=== PATIENT | female | born 1950 | race Caucasian/White ===

== ENCOUNTER 2022-06-28 09:45 | Inpatient (IN) ==
[2022-06-28] MEDS ORDERED: IOPAMIDOL 100 ML BOTTLE IV ONE (09:46)
--- NOTE | 2022-06-28 10:04 | Emergency Department Note ---
HPI General Chief complaint: Shortness of Breath/Dyspnea Stated complaint: flu sx Time Seen by Provider: 06/28/22 10:00 Source: patient Mode of arrival: ambulatory Limitations: no limitations History of Present Illness HPI Narrative: Narrative: This 72-year-old presents complaining of increasing shortness of breath and coughing and aching all over since Monday. She has felt febrile, but denies sweats and chills. She denies nausea vomiting diarrhea. She denies urinary tract symptoms. She denies any chest pains or palpitations. Related Data Home Medications Medication Instructions Recorded Confirmed aspirin 325 mg tablet 325 mg PO QDAY 05/20/19 04/11/22 atorvastatin 80 mg tablet 80 mg PO QHS 05/20/19 04/11/22 Previous Rx's Medication Instructions Recorded fluoxetine 10 mg capsule 10 mg PO QDAY #30 caps 04/06/22 fluoxetine 40 mg capsule 40 mg PO QDAY 30 days #30 caps 04/06/22 trazodone 100 mg tablet See Rx Instructions .Route 04/06/22 .COMPLEX #75 tabs gabapentin 300 mg capsule 1,200 mg PO HS #120 caps 04/11/22 Allergies Allergy/AdvReac Type Severity Reaction Status Date / Time acetaminophen AdvReac Intermediate Vomiting Verified 06/28/22 09:51 [From Darvocet-N 100] hydrocodone AdvReac Intermediate Vomiting Verified 06/28/22 09:51 propoxyphene AdvReac Intermediate Vomiting Verified 06/28/22 09:51 [From Darvocet-N 100] Review of Systems ROS ROS Narrative: Narrative: [facility] Narrative Patient History Narrative: Narrative: Medical/Surgical/Family History All Active Problems (Updated 04/11/22 @ 17:43 by Mark Brooks MD) 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) Cerebrovascular accident (Chronic) Osteoarthritis of right knee (Chronic) Osteopenia (Chronic) Adenomatous polyp of cervix (Chronic) Vaginal prolapse (Chronic) Constipation, chronic (Chronic) Other insomnia (Chronic) Generalized anxiety disorder (Chronic) Adjustment disorder with anxiety (Chronic) Mixed hyperlipidemia (Chronic) Other dorsalgia (Chronic) Pain, joint, ankle, right (Chronic) Anxiety (Chronic) Depression, major, severe recurrence (Chronic) Generalized anxiety disorder (Chronic) Persistent depressive disorder (Chronic) Thyroid nodule (Chronic) Degenerative disc disease (Chronic) Constipation (Chronic) Nausea (Chronic) Lumbago (Chronic) Acute whiplash injury (Chronic) Tension headache (Chronic) Drug reaction (Chronic) Urinary tract infection (Chronic) Hypokalemia (Chronic) Dehydration (Chronic) Medical History (Updated 04/11/22 @ 17:43 by Mark Brooks MD) Adenomatous polyp of cervix Adjustment disorder with anxiety Anxiety Cerebrovascular accident Constipation Constipation, chronic Degenerative disc disease Depression, major, severe recurrence Generalized anxiety disorder History of blood clot in brain Lumbago Mixed hyperlipidemia Nausea Osteoarthritis of right knee Osteopenia Other dorsalgia Other insomnia Pain, joint, ankle, right Thyroid nodule Vaginal prolapse Surgical History H/O total knee replacement (~2014) History of carotid endarterectomy History of cholecystectomy History of D&C (07/26/16) History of fusion of cervical spine History of neck surgery X 3 History of reduction mammoplasty History of tonsillectomy and adenoidectomy Family History Mother Insomnia Arthritis Hypothyroidism Other Osteoarthritis Social History Smoking Status: Former smoker Alcohol Intake Frequency: does not drink Substance Use: former substance user and marijuana Exam Narrative Narrative: Narrative: General Limitations: no limitations Course Vital Signs Vital signs: Vital Signs Temperature 97.0 F 06/28/22 09:50 Pulse Rate 94 H 06/28/22 09:50 Respiratory Rate 16 06/28/22 09:50 Blood Pressure 127/64 06/28/22 09:50 Pulse Oximetry (%) 88 L 06/28/22 09:50 Oxygen Delivery Method 06/28/22 09:50 Temperature 97.0 F 06/28/22 09:50 Pulse Rate 92 H 06/28/22 11:37 Respiratory Rate 16 06/28/22 09:50 Blood Pressure 134/63 06/28/22 11:37 Pulse Oximetry (%) 94 06/28/22 11:37 Oxygen Delivery Method 06/28/22 11:37 Oxygen Flow Rate (L/min) 2 06/28/22 11:37 MDM MDM Narrative Medical decision making narrative: Narrative: Patient's EKG is normal sinus rhythm, with no signs of acute ischemia and no S1Q3 pattern. Chest x-ray was read as negative with borderline cardiomegaly. Patient's Melani test came back positive for influenza A Sepsis Sepsis Identified: No Lab Data Result diagrams: 06/28/22 10:15 Labs: Lab Results 06/28/22 06/28/22 06/28/22 Range/Units 10:14 10:15 10:15 WBC 6.1 (4.5-11.0) K/mcL RBC 3.82 (3.59-5.38) M/mcL Hgb 12.9 (11.2-15.7) g/dL Hct 37.7 (34.1-44.9) % POC Hct (36-48) MCV 98.7 (80.0-100.0) fL MCH 33.8 (26.0-34.0) pg MCHC 34.2 (31.0-36.0) g/dL RDW 12.2 (11.5-14.5) % Plt Count 128 L (140-440) K/mcL MPV 10.1 (8.8-12.5) fL Immature Gran % (Auto) 0.3 (0.0-0.5) % Neut % (Auto) 78.0 (38.0-78.0) % Lymph % (Auto) 12.1 L (15.5-49.0) % [place] % (Auto) 9.1 (1.0-12.0) % Eos % (Auto) 0.2 (0.0-7.0) % Baso % (Auto) 0.3 (0.0-2.0) % Lymph # (Auto) 0.73 L (1.50-4.80) K/mcL [place] # (Auto) 0.55 (0.10-0.90) K/mcL Eos # (Auto) 0.01 (0.00-0.70) K/mcL Baso # (Auto) 0.02 (0.00-0.30) K/mcL Immature Gran # 0.02 (0.00-0.05) K/mcl Absolute Neutrophils 4.72 (1.80-8.00) K/mcL D-Dimer TNP POC Sodium (133-145) POC Potassium (3.3-5.1) POC Chloride (96-108) POC Total CO2 (22-30) POC BUN (6-20) POC Creatinine (0.6-1.2) POC Glucose (70-105) POC WB Ioniz Calcium (1.16-1.32) POC Troponin I 0.07 (0.00-0.08) 06/28/22 06/28/22 Range/Units 10:20 11:11 WBC (4.5-11.0) K/mcL RBC (3.59-5.38) M/mcL Hgb (11.2-15.7) g/dL Hct (34.1-44.9) % POC Hct 38.0 (36-48) MCV (80.0-100.0) fL MCH (26.0-34.0) pg MCHC (31.0-36.0) g/dL RDW (11.5-14.5) % Plt Count (140-440) K/mcL MPV (8.8-12.5) fL Immature Gran % (Auto) (0.0-0.5) % Neut % (Auto) (38.0-78.0) % Lymph % (Auto) (15.5-49.0) % [place] % (Auto) (1.0-12.0) % Eos % (Auto) (0.0-7.0) % Baso % (Auto) (0.0-2.0) % Lymph # (Auto) (1.50-4.80) K/mcL [place] # (Auto) (0.10-0.90) K/mcL Eos # (Auto) (0.00-0.70) K/mcL Baso # (Auto) (0.00-0.30) K/mcL Immature Gran # (0.00-0.05) K/mcl Absolute Neutrophils (1.80-8.00) K/mcL D-Dimer 0.77 H POC Sodium 138 (133-145) POC Potassium 3.7 (3.3-5.1) POC Chloride 101 (96-108) POC Total CO2 27.0 (22-30) POC BUN 20 (6-20) POC Creatinine 0.5 L (0.6-1.2) POC Glucose 108 H (70-105) POC WB Ioniz Calcium 1.14 L (1.16-1.32) POC Troponin I (0.00-0.08) ED POC Tests ED POC Tests: [facility] - Influenza A Positive [facility] - Influenza B Negative [facility] - SARS Antigen Negative Discharge Plan Patient/Caregiver Discharge Instructions Follow up with: Reta Barbosa ARNP [Primary Care Provider] - Prescriptions: No Action atorvastatin 80 mg tablet 80 mg PO QHS aspirin 325 mg tablet 325 mg PO QDAY gabapentin 300 mg capsule 1,200 mg PO HS Qty: 120 2RF trazodone 100 mg tablet See Rx Instructions .ROUTE .COMPLEX Qty: 75 3RF Dose Instruction: TAKE 1& 1/2 TO 2 TABLETS BY MOUTH AT BEDTIME NEEDED FOR INSOMNIA Rx Instructions: TAKE 1& 1/2 TO 2 TABLETS BY MOUTH AT BEDTIME NEEDED FOR INSOMNIA fluoxetine 40 mg capsule 40 mg PO QDAY 30 Days Qty: 30 3RF fluoxetine 10 mg capsule 10 mg PO QDAY Qty: 30 2RF Rx Instructions: Take along with 40mg capsule (total daily dose of 50mg)
--- NOTE | 2022-06-28 10:16 | XRay Report ---
CLINICAL INFORMATION: Dyspnea COMPARISON: None. TECHNIQUE: Portable FINDINGS: The heart is mildly enlarged. Mediastinum and pulmonary vessels are unremarkable. The lungs are clear. There are no effusions. The bones and soft tissues are within normal limits. IMPRESSION: Borderline cardiomegaly otherwise negative. Interpreted and Authenticated by: Calos Pinto 06/28/22
[2022-06-28 10:23] LABS: POC Calcium, Ionized 1.14 (1.16-1.32); POC Creatinine 0.5 (0.6-1.2); POC Potassium 3.7 (3.3-5.1)
[2022-06-28 11:08] LABS: Basophils # (Auto) 0.02 K/mcL (0.00-0.30); Basophils % (Auto) 0.3 % (0.0-2.0); Eosinophils # (Auto) 0.01 K/mcL (0.00-0.70); Eosinophils % (Auto) 0.2 % (0.0-7.0); Hematocrit 37.7 % (34.1-44.9); Hemoglobin 12.9 g/dL (11.2-15.7); Lymphocytes # (Auto) 0.73 K/mcL (1.50-4.80); Lymphocytes % (Auto) 12.1 % (15.5-49.0); Mean Cell Volume 98.7 fL (80.0-100.0); Mean Corpuscular HGB Conc 34.2 g/dL (31.0-36.0); Mean Platelet Volume 10.1 fL (8.8-12.5); Monocytes # (Auto) 0.55 K/mcL (0.10-0.90); Monocytes % (Auto) 9.1 % (1.0-12.0); Platelet Count 128 K/mcL (140-440); RBC 3.82 M/mcL (3.59-5.38); Red Cell Distribution Width 12.2 % (11.5-14.5); WBC 6.1 K/mcL (4.5-11.0)
[2022-06-28] MEDS ORDERED: OSELTAMIVIR PHOSPHATE 75 MG CAPSULE PO ONE (12:00)
[2022-06-28] MEDS ORDERED: ONDANSETRON 4 MG/2 ML VIAL IV ONE (12:41)
--- NOTE | 2022-06-28 13:33 | Cat Scan Report ---
CLINICAL INFORMATION: Elevated d-dimer and chest pain COMPARISON: None. TECHNIQUE: 80ml of Isovue-370 were injected intravenously. Using SmartPrep to maximize pulmonary artery opacification, .625mm helical slices were obtained from the lung apices through the lung bases. Following reconstruction, 2.5 mm sagittal, coronal, and axial reformations were processed. The exam was reviewed at mediastinal, lung, and bone windows. The exam was performed using radiation dose optimization techniques including, but not limited to, automated exposure control, adjustment of the mA and/or kV according to patient size and use of iterative reconstruction technique. FINDINGS: Pulmonary parenchymal windows moderate underlying bronchitis likely chronic with elevated lung volumes and wall thickening/dilatation of bronchi. Moderate patchy groundglass infiltrates in the posterior segment of the right upper lobe and the superior and posterior basilar segments of the right lower lobe are present. Smaller patchy alveolar infiltrate throughout the posterior left lower lobe with a 6.4 mm nodule superior aspect of infiltrate-like likely inflammatory. Left upper lobe is clear. Pleural spaces are unremarkable-no effusions. Mediastinal windows show the heart is is mildly enlarged with extremely heavy calcific plaque in the coronary arteries. There is also calcification in aortic and mitral valve. The thoracic aorta is normal in diameter diffuse intimal thickening. The pulmonary arteries are normal diameter and well-opacified without evidence of embolus. There is no adenopathy in the mediastinal, hilar or axillary regions. Esophagus is grossly normal. The thyroid is unremarkable. Soft tissues of the chest wall are normal. Bone windows show no focal osseous abnormalities. At C7-T1, there is grade 1 spondylolisthesis, broad disc protrusion and facet arthropathy resulting in severe left IV foraminal narrowing with exiting left C8 nerve root impingement. This also broad disc spur complex C6-7 with impingement of the exiting left C7 nerve root. Images appear abdomen show fusiform aneurysmal enlargement of the celiac artery with a maximal diameter 11 mm. Visualized liver, adrenal glands, spleen, pancreas and kidneys are normal. IMPRESSION: 1. No evidence of pulmonary embolus. 2. Moderate patchy groundglass infiltrates posterior right upper and lower lobes with smaller patchy alveolar infiltrate posterior left lower lobe. Suspect aspiration or infection. 3. Moderate underlying bronchitis-likely chronic 4. Moderate cardiomegaly with very heavy calcific plaque in the coronary arteries. Suspect hemodynamically significant stenosis. 5. 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 6. Degenerative stenosis in the lower cervical spine resulting in severe left C6-7 and left C7-T1 IV foraminal narrowing with exiting left C7 and left C8 nerve root impingement. Please correlate with left upper extremity radiculopathy Interpreted and Authenticated by: Calos Pinto 06/28/22
--- NOTE | 2022-06-28 14:37 | Internal Med History&Physical ---
HPI History of Present Illness Patient information: Note initiated : 06/28/22 at 2:29 pm Service Date, if different from initiated Date: [] Patient: Savanah Bernstein a 72 y/o F admitted on for flu sx. Chief Complaint: [] History of present illness: Ms. Bernstein is a 72 year old F Presents to the ED with shortness of breath cough body aches fever chills nausea vomiting diarrhea. Patient states she went to bed feeling fine night but woke up Monday morning feeling crummy including the above symptoms. Shortness of breath worsened to the point where she felt she needed to come into the ED. She is found to be hypoxic at 88%. Her cough is productive of thick green sputum. In the ED she is evaluated found to be tachycardic and hypoxic. She has had the flu vaccine was found to be flu positive. COVID-negative. She says her grandson who she lives with was sick prior to her getting sick. Chest x-ray unremarkable and CTA of the chest was done which showed no PE but moderate patchy groundglass infiltrate right upper and lower lobes smaller in the posterior left. Patient started on oxygen and IV antibiotics in the ED. Review of Systems: Pertinent positives as above. Denies headache/chest pain/. 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) Cerebrovascular accident (Chronic) Osteoarthritis of right knee (Chronic) Osteopenia (Chronic) Adenomatous polyp of cervix (Chronic) Vaginal prolapse (Chronic) Constipation, chronic (Chronic) Other insomnia (Chronic) Generalized anxiety disorder (Chronic) Adjustment disorder with anxiety (Chronic) Mixed hyperlipidemia (Chronic) Other dorsalgia (Chronic) Pain, joint, ankle, right (Chronic) Anxiety (Chronic) Depression, major, severe recurrence (Chronic) Generalized anxiety disorder (Chronic) Persistent depressive disorder (Chronic) Thyroid nodule (Chronic) Degenerative disc disease (Chronic) Constipation (Chronic) Nausea (Chronic) Lumbago (Chronic) Acute whiplash injury (Chronic) Tension headache (Chronic) Drug reaction (Chronic) Urinary tract infection (Chronic) Hypokalemia (Chronic) Dehydration (Chronic) Medical History (Updated 04/11/22 @ 17:43 by Mark Brooks MD) Adenomatous polyp of cervix Adjustment disorder with anxiety Anxiety Cerebrovascular accident Constipation Constipation, chronic Degenerative disc disease Depression, major, severe recurrence Generalized anxiety disorder History of blood clot in brain Lumbago Mixed hyperlipidemia Nausea Osteoarthritis of right knee Osteopenia Other dorsalgia Other insomnia Pain, joint, ankle, right Thyroid nodule Vaginal prolapse Surgical History H/O total knee replacement (~2014) History of carotid endarterectomy History of cholecystectomy History of D&C (07/26/16) History of fusion of cervical spine History of neck surgery X 3 History of reduction mammoplasty History of tonsillectomy and adenoidectomy Family History Mother Insomnia Arthritis Hypothyroidism Other Osteoarthritis Social History marital status: occupational status: retired physical activity: other details: Exercise Tape frequency: 3-4 times per week smoking status: Former smoker alcohol intake frequency: does not drink substance use type: former substance user and marijuana MEDS/ALLERGIES Home Medications and Allergies Home Medications Medication Instructions Recorded Confirmed Type aspirin 325 mg tablet 325 mg PO QDAY 05/20/19 04/11/22 History atorvastatin 80 mg tablet 80 mg PO QHS 05/20/19 04/11/22 History fluoxetine 10 mg capsule 10 mg PO QDAY #30 caps 04/06/22 04/11/22 Rx fluoxetine 40 mg capsule 40 mg PO QDAY 30 days #30 caps 04/06/22 04/11/22 Rx trazodone 100 mg tablet See Rx Instructions .Route 04/06/22 04/11/22 Rx .COMPLEX #75 tabs gabapentin 300 mg capsule 1,200 mg PO HS #120 caps 04/11/22 04/11/22 Rx Allergies Allergy/AdvReac Type Severity Reaction Status Date / Time acetaminophen AdvReac Intermediate Vomiting Verified 06/28/22 09:51 [From Darvocet-N 100] hydrocodone AdvReac Intermediate Vomiting Verified 06/28/22 09:51 propoxyphene AdvReac Intermediate Vomiting Verified 06/28/22 09:51 [From Darvocet-N 100] EXAM Constitutional Vitals: Temp Pulse Resp BP Pulse Ox O2 Del Method O2 Flow Rate 97.0 F 98 H 16 139/75 97 2 06/28/22 09:50 06/28/22 13:57 06/28/22 09:50 06/28/22 13:57 06/28/22 13:57 06/28/22 12:43 06/28/22 12:43 Exam: General: Alert, Awake, No acute Distress Eyes/N/T: EOMI, PERRL, Head/Neck: neck supple, normocephalic atraumatic CV: Tacky but regular, No murmurs, normal s1/s2 Pulm: Decreased BS b/l, mild wheezing and rales, Abd: soft, nontender, +BS x4 Ext: no clubbing/cyanosis/edema Neuro: Alert, no focal deficits, moves all extremities, CN 2-12 grossly intact, symmetrical strength b/l upper/lower, sensations intact b/l upper/lower Skin: warm/dry DATA Data Completed and Pending Labs: Labs from last 24 hours 06/28/22 06/28/22 06/28/22 11:11 10:20 10:15 WBC RBC Hgb Hct POC Hct 38.0 MCV MCH MCHC RDW Plt Count MPV Immature Gran % (Auto) Neut % (Auto) Lymph % (Auto) [place] % (Auto) Eos % (Auto) Baso % (Auto) Lymph # (Auto) [place] # (Auto) Eos # (Auto) Baso # (Auto) Immature Gran # Absolute Neutrophils D-Dimer 0.77 H TNP POC Sodium 138 POC Potassium 3.7 POC Chloride 101 POC Total CO2 27.0 POC BUN 20 POC Creatinine 0.5 L POC Glucose 108 H POC WB Ioniz Calcium 1.14 L POC Troponin I 06/28/22 06/28/22 10:15 10:14 WBC 6.1 RBC 3.82 Hgb 12.9 Hct 37.7 POC Hct MCV 98.7 MCH 33.8 MCHC 34.2 RDW 12.2 Plt Count 128 L MPV 10.1 Immature Gran % (Auto) 0.3 Neut % (Auto) 78.0 Lymph % (Auto) 12.1 L [place] % (Auto) 9.1 Eos % (Auto) 0.2 Baso % (Auto) 0.3 Lymph # (Auto) 0.73 L [place] # (Auto) 0.55 Eos # (Auto) 0.01 Baso # (Auto) 0.02 Immature Gran # 0.02 Absolute Neutrophils 4.72 D-Dimer POC Sodium POC Potassium POC Chloride POC Total CO2 POC BUN POC Creatinine POC Glucose POC WB Ioniz Calcium POC Troponin I 0.07 A/P Narrative A/P Narrative: A: *Acute hypoxic respiratory failure: - *PNA, viral vs Bacterial vs suspected bacterial coinfection *Flu A: *Generalized weakness: *Depression/anxiety: * P: -Tamiflu -IVF -pending crp/pct -empiric abx for now, pending SC -O2 supp and wean as able -IS/Acapella - -Home medication reconciliation -PT/OT -ppx: Lovenox Time Spent With Patient Time: Total time spent is greater than 50% in coordination of care (as documented) at patient's floor/unit and/or counseling patient: Total time spent with greater than 50% in coordination of care (as documented) at patient's floor/unit and/or counseling patient:: Greater than 70 minutes
[2022-06-28] MEDS ORDERED: cefTRIAXone 1 GM in DEXTROSE 5% IN WATER 50 ML IV SCH (15:54)
[2022-06-28] MEDS ORDERED: ONDANSETRON 4 MG/2 ML VIAL IV PRN (15:54)
[2022-06-28] MEDS ORDERED: SENNOSIDES 1 TABLET PO PRN (15:54)
[2022-06-28] MEDS ORDERED: 0.9 % SODIUM CHLORIDE 1,000 ML IV ONE (15:54)
[2022-06-28] MEDS ORDERED: POLYETHYLENE GLYCOL 3350 17 GM PACKET PO PRN (15:54)
[2022-06-28] MEDS ORDERED: MAGNESIUM SULFATE 2 GM/50 ML BAG IV PRN (15:54)
[2022-06-28] MEDS ORDERED: POTASSIUM CHLORIDE 40 MEQ in DEXTROSE 5% IN WATER 500 ML IV PRN (15:54)
[2022-06-28] MEDS ORDERED: POTASSIUM CHLORIDE 20 MEQ TABLET PO PRN ×2 (15:54)
[2022-06-28] MEDS ORDERED: IPRATROPIUM/ALBUTEROL 3 ML AMPUL.NEB NEB PRN (15:54)
[2022-06-28] MEDS: cefTRIAXone 1 GM VIAL IV SCH (16:28)
[2022-06-28] MEDS: AZITHROMYCIN 500 MG in DEXTROSE 5% IN WATER 250 ML IV SCH (16:28)
[2022-06-28] MEDS: ACETAMINOPHEN 325 MG TABLET PO PRN (16:29)
[2022-06-28] MEDS ORDERED: OSELTAMIVIR PHOSPHATE 75 MG CAPSULE PO SCH (21:00)
[2022-06-28] MEDS: OSELTAMIVIR PHOSPHATE 75 MG CAPSULE PO SCH (21:02)
[2022-06-28] MEDS: GABAPENTIN 300 MG CAPSULE PO SCH (21:02)
[2022-06-28] MEDS: ATORVASTATIN 40 MG TABLET PO SCH (21:02)
[2022-06-28] MEDS: traZODone HCL 150 MG TABLET PO SCH (21:02)
[2022-06-28] MEDS: DOCUSATE SODIUM 100 MG CAPSULE PO SCH (21:03)
[2022-06-28] MEDS: 0.9 % SODIUM CHLORIDE 10 ML SYRINGE IV SCH (21:03)
[2022-06-29] MEDS: 0.9 % SODIUM CHLORIDE 10 ML SYRINGE IV SCH ×3 (06:01→20:42)
--- NOTE | 2022-06-29 07:39 | Internal Med Progress Note ---
SUBJECTIVE Subjective Patient information: Note initiated : 06/29/22 at 7:34 am Service Date, if different from initiated Date: [] Patient: Savanah Bernstein a 72 y/o F admitted on 06/28/22 for flu sx. Chief Complaint: [] Interval history: History of present illness: Ms. Bernstein is a 72 year old F Presents to the ED with shortness of breath cough body aches fever chills nausea vomiting diarrhea. Patient states she went to bed feeling fine night but woke up Monday morning feeling crummy including the above symptoms. Shortness of breath w orsened to the point where she felt she needed to come into the ED. She is found to be hypoxic at 88%. Her cough is productive of thick green sputum. In the ED she is evaluated found to be tachycardic and hypoxic. She has had the flu vaccine was found to be flu positive. COVID-negative. She says her grandson who she lives with was sick prior to her getting sick. Chest x-ray unremarkable and CTA of the chest was done which showed no PE but moderate patchy groundglass infiltrate right upper and lower lobes smaller in the posterior left. Patient started on oxygen and IV antibiotics in the ED. 06/29 Patient had 1 loose bowel yesterday early evening. Patient has cough shortness of breath that she says her mildly improved. Was on 5 L oxygen mask this morning which is an increase from yesterday. Influenza A positive. Procalcitonin quite elevated. Pending CBC lab. Review of Systems: denies headache/fever/chills/nausea/vomiting/chest or abdominal pain/. Otherwise see above. Constitutional Vitals: Vital Signs Temp Pulse Resp BP Pulse Ox O2 Del Method O2 Flow Rate 97.3 F 24 L 16 133/65 93 5 06/29/22 02:47 06/29/22 02:47 06/29/22 02:47 06/29/22 02:47 06/29/22 02:47 06/29/22 06:11 06/29/22 06:11 Period Temp Pulse Resp BP Sys/Tanner Pulse Ox O2 Del Method O2 Flow Rate Last 24 Hr 97.0 F-102.7 F 24-100 16-20 107-148/56-75 84-99 Nasal Cannula- Room Air 2-5 Intake and Output 06/28/22 06/29/2206/29/22 19:59 03:59 11:59 Intake Total 250 250 Output Total 150 100 Balance 250 100 -100 Weight 55.701 kg Intake & Output: Intake & Output 06/28/22 06/29/22 06/29/22 19:59 03:59 11:59 Intake Total 250 250 Output Total 150 100 Balance 250 100 -100 Weight 55.701 kg Intake: IV 250 Zithromax 500 mg In Dextrose 5% 250 in Water 250 ml @ 250 mls/hr IV Q24H [facility] Rx#:[id number] Oral 250 Output: Void Amount 150 100 Other: Meal Dinner Percent of Meal Consumed 0% Urine Appearance Clear Clear Urine Color Pale Yellow Urine Odor Normal Stool Size Large Stool Color Brown Stool Consistency Liquid Loose # Voids 1 # Bowel Movements 1 # of times incontinent of 1 Bowels Exam: General: Alert, Awake, No acute Distress Eyes/N/T: EOMI, Head/Neck: neck supple, CV: Tacky but regular, No murmurs, Pulm: rhonchi b/l, mild decreased BS b/l, no , Abd: soft, nontender, +BS x4 Ext: no clubbing/cyanosis/edema Neuro: Alert, no focal deficits, moves all extremities, Skin: warm/dry OBJ DATA Labs CBC & Chem 7: 06/28/22 10:15 06/29/22 05:39 Labs: Abnormal Lab Results 06/28/22 06/28/22 06/28/22 11:11 10:20 10:15 Plt Count Lymph % (Auto) Lymph # (Auto) D-Dimer 0.77 H POC Creatinine 0.5 L POC Glucose 108 H POC WB Ioniz Calcium 1.14 L C-Reactive Protein 28.40 H Procalcitonin 06/28/22 06/28/22 10:15 10:15 Plt Count 128 L Lymph % (Auto) 12.1 L Lymph # (Auto) 0.73 L D-Dimer POC Creatinine POC Glucose POC WB Ioniz Calcium C-Reactive Protein Procalcitonin 8.74 H Meds: Medications Acetaminophen (Acetaminophen 325 Mg Tablet) 650 mg PO Q6HP PRN; Protocol PRN Reason: Per Pain Protocol/Fever > 101 Last Admin: 06/28/22 16:29 Dose: 650 mg Albuterol/Ipratropium (Ipratropium/Albuterol 3 Ml Ampul.Neb) 3 ml NEB Q4HP PRN PRN Reason: Shortness Of Breath Aspirin (Aspirin 81 Mg Tab.Chew) 81 mg PO DAILY [facility] Atorvastatin Calcium (Atorvastatin 40 Mg Tablet) 80 mg PO HS [facility] Last Admin: 06/28/22 21:02 Dose: 80 mg Ceftriaxone Sodium (Ceftriaxone 1 Gm Vial) 1 gm IV Q24H [facility] Last Admin: 06/28/22 16:28 Dose: 1 gm Docusate Sodium (Docusate Sodium 100 Mg Capsule) 100 mg PO BID [facility] Last Admin: 06/28/22 21:03 Dose: Not Given Enoxaparin Sodium (Enoxaparin 40 Mg/0.4 Ml Syringe) 40 mg SQ DAILY [facility] Fluoxetine HCl (Fluoxetine Hcl 20 Mg Capsule) 40 mg PO DAILY [facility] Fluoxetine HCl (Fluoxetine Hcl 10 Mg Capsule) 10 mg PO QDAY [facility] Gabapentin (Gabapentin 300 Mg Capsule) 300 mg PO HS [facility] Last Admin: 06/28/22 21:02 Dose: 300 mg Azithromycin 500 mg/ Dextrose 250 mls @ 250 mls/hr IV Q24H [facility]; Protocol Stop: 06/30/22 17:59 Last Infusion: 06/28/22 19:38 Dose: Infused Potassium Chloride 40 meq/ (Dextrose) 520 mls @ 130 mls/hr IV UD PRN PRN Reason: Potassium < 3 Magnesium Sulfate (Magnesium Sulfate) 2 gm in 50 mls @ 50 mls/hr IV UD PRN PRN Reason: Magnesium </= 1.6 Ondansetron HCl (Ondansetron 4 Mg/2 Ml Vial) 4 mg IV Q4HP PRN PRN Reason: Nausea And Vomiting Oseltamivir Phosphate (Oseltamivir Phosphate 75 Mg Capsule) 75 mg PO BID [facility] Stop: 07/02/22 21:01 Last Admin: 06/28/22 21:02 Dose: 75 mg Pneumococcal Polyvalent Vaccine (Pneumococcal 23-Yennifer P-Sac Vac 0.5 Ml Syringe) 0.5 ml IM .ONCE ONE Stop: 06/29/22 10:01 Polyethylene Glycol (Polyethylene Glycol 3350 17 Gm Packet) 17 gm PO DAILYP PRN PRN Reason: Constipation Potassium Chloride (Potassium Chloride 20 Meq Tablet) 40 meq PO UD PRN PRN Reason: Potssium is 3-3.5 Potassium Chloride (Potassium Chloride 20 Meq Tablet) 40 meq PO UD PRN PRN Reason: Potassium < 3 Senna (Sennosides 1 Tablet) 2 tab PO DAILYP PRN PRN Reason: Constipation Sodium Chloride (0.9 % Sodium Chloride 10 Ml Syringe) 10 ml IV Q8 [facility] Last Admin: 06/29/22 06:01 Dose: Not Given Trazodone HCl (Trazodone Hcl 150 Mg Tablet) 150 mg PO HS [facility] Last Admin: 06/28/22 21:02 Dose: 150 mg A/P Narrative A/P Narrative: A: *Acute hypoxic respiratory failure w/Acute Lung injury borderline ARDS: -5L Oxymask *PNA, likely viral + Bacterial coinfection: *Flu A: *Sepsis: -febrile o/n *Generalized weakness: *Depression/anxiety: * P: -Tamiflu -d/c IVF -pending crp/pct -Rocephing/azithro, pending SC/BC -O2 supp and wean as able -IS/Acapella, prn nebs, RT --PT/OT -ppx: Lovenox Time Spent With Patient Time: Total time spent is greater than 50% in coordination of care (as documented) at patient's floor/unit and/or counseling patient: Total time spent with greater than 50% in coordination of care (as documented) at patient's floor/unit and/or counseling patient:: 35 - 50 minutes QUALITY VTE Deep Vein Thrombosis/Pulmonary Embolism Present on Admission: No
[2022-06-29 08:11] LABS: ALT/SGPT 14 U/L (<40); AST/SGOT 21 U/L (<32); Albumin/Globulin Ratio 1.4 (1.0-2.3); Alkaline Phosphatase 57 U/L (39-117); Bilirubin,Direct < 0.2 mg/dL (0-0.3); Bilirubin,Total 0.5 mg/dL (0.1-1.0); Blood Urea Nitrogen 10 mg/dL (8-23); Calcium 8.4 mg/dL (8.6-10.4); Carbon Dioxide 26 mmol/L (22-30); Chloride 102 mmol/L (96-108); Globulin 2.1 gm/dL (2.2-3.7); Glomerular Filtration Rate 96; Glucose 85 mg/dL (70-105); Lactate Dehydrogenase 185 U/L (135-225); Phosphorous 2.6 mg/dL (2.5-4.5); Triglycerides 71 mg/dL (<150)
[2022-06-29] MEDS: FLUoxetine HCL 20 MG CAPSULE PO SCH (08:58)
[2022-06-29] MEDS: ASPIRIN 81 MG TAB.CHEW PO SCH (08:58)
[2022-06-29] MEDS: cefTRIAXone 1 GM VIAL IV SCH (08:58)
[2022-06-29] MEDS: ENOXAPARIN 40 MG/0.4 ML SYRINGE SQ SCH (08:58)
[2022-06-29] MEDS: DOCUSATE SODIUM 100 MG CAPSULE PO SCH (08:59)
[2022-06-29] MEDS: FLUoxetine HCL 10 MG CAPSULE PO SCH (08:59)
[2022-06-29] MEDS: OSELTAMIVIR PHOSPHATE 75 MG CAPSULE PO SCH ×2 (08:59→20:41)
[2022-06-29 09:28] LABS: Basophils # (Auto) 0.01 K/mcL (0.00-0.30); Basophils % (Auto) 0.2 % (0.0-2.0); Eosinophils # (Auto) 0 K/mcL (0.00-0.70); Eosinophils % (Auto) 0 % (0.0-7.0); Hematocrit 33.6 % (34.1-44.9); Hemoglobin 10.9 g/dL (11.2-15.7); Lymphocytes # (Auto) 0.94 K/mcL (1.50-4.80); Lymphocytes % (Auto) 19.1 % (15.5-49.0); Mean Cell Volume 99.1 fL (80.0-100.0); Mean Corpuscular HGB Conc 32.4 g/dL (31.0-36.0); Mean Platelet Volume 10.1 fL (8.8-12.5); Monocytes # (Auto) 0.73 K/mcL (0.10-0.90); Monocytes % (Auto) 14.8 % (1.0-12.0); Neutrophils % (Auto) 65.5 % (38.0-78.0); Platelet Count 137 K/mcL (140-440); RBC 3.39 M/mcL (3.59-5.38); Red Cell Distribution Width 12.2 % (11.5-14.5); WBC 4.9 K/mcL (4.5-11.0)
[2022-06-29] MEDS ORDERED: PNEUMOCOCCAL 23-VAL P-SAC VAC 0.5 ML SYRINGE IM ONE (10:00)
[2022-06-29] MEDS: AZITHROMYCIN 500 MG in DEXTROSE 5% IN WATER 250 ML IV SCH (10:03)
[2022-06-29 12:15] LABS: Band Neutrophils % 10 % (0-10); Basophils % (Manual) 1 % (0-2); Hypochromasia 1+ (None Seen); Lymphocytes % 16 % (15-49); Monocytes % (Manual) 5 % (1-12); Platelet Estimate DECREASED (Normal); RBC Morphology ABNORMAL (Normal); Reactive Lymphocytes 3 % (0-2); Segmented Neutrophils % 65 % (38-78)
[2022-06-29 17:36] LABS: Appearance,Urine CLEAR (Clear); Bilirubin,Urine Negative (Negative); Color,Urine YELLOW; Culture Indicated,Urine No; Glucose,Urine (UA) Negative (Negative); Ketones,Urine 20 mg/dL (Negative); Leukocyte Esterase,Urine 25 /uL (Negative); Mucus,Urine MOD /hpf; Nitrate,Urine Negative (Negative); Protein,Urine Negative (Negative); Specific Gravity,Urine 1.015 (1.000-1.035); Urine Blood Negative (Negative); Urine Hyaline Cast 1 /lph (0-2); Urine RBC 3 /hpf (0-3); Urine Squamous Epithelial Cell < 1 /hpf (0-4); Urine WBC 7 /hpf (0-4); Urobilinogen,Urine Negative
--- NOTE | 2022-06-29 18:26 | EKG ---
Formerly [facility] Test Date: 2022-06-28 Pat Name: Savanah Bernstein Department: ED Room: Gender: Female [employer] Coordinator: LR : 1950 Requested By: Manuel Vidal Order Number: [id number] Reading MD: David Bishop Measurements Intervals [place] Rate: 89 P: 31 [place]: 158 QRS: 53 QRSD: 90 T: 17 QT: 337 QTc: 410 Interpretive Statements Sinus rhythm Ventricular premature complex Electronically Signed On 06-29-2022 18:26:14 PST by David Bishop /store/[email or web address]/[id number]
[2022-06-29] MEDS: traZODone HCL 150 MG TABLET PO SCH (20:41)
[2022-06-29] MEDS: GABAPENTIN 300 MG CAPSULE PO SCH (20:41)
[2022-06-29] MEDS: ATORVASTATIN 40 MG TABLET PO SCH (20:41)
[2022-06-29] MEDS: ACETAMINOPHEN 325 MG TABLET PO PRN (20:42)
[2022-06-30] MEDS: 0.9 % SODIUM CHLORIDE 10 ML SYRINGE IV SCH ×3 (05:07→20:47)
--- NOTE | 2022-06-30 07:25 | Internal Med Progress Note ---
SUBJECTIVE Subjective Patient information: Note initiated : 06/30/22 at 7:21 am Service Date, if different from initiated Date: [] Patient: Savanah Bernstein a 72 y/o F admitted on 06/28/22 for flu sx. Chief Complaint: [] Interval history: History of present illness: Ms. Bernstein is a 72 year old F Presents to the ED with shortness of breath cough body aches fever chills nausea vomiting diarrhea. Patient states she went to bed feeling fine night but woke up Monday morning feeling crummy including the above symptoms. Shortness of breath w orsened to the point where she felt she needed to come into the ED. She is found to be hypoxic at 88%. Her cough is productive of thick green sputum. In the ED she is evaluated found to be tachycardic and hypoxic. She has had the flu vaccine was found to be flu positive. COVID-negative. She says her grandson who she lives with was sick prior to her getting sick. Chest x-ray unremarkable and CTA of the chest was done which showed no PE but moderate patchy groundglass infiltrate right upper and lower lobes smaller in the posterior left. Patient started on oxygen and IV antibiotics in the ED. 06/29 Patient had 1 loose bowel yesterday early evening. Patient has cough shortness of breath that she says her mildly improved. Was on 5 L oxygen mask this morning which is an increase from yesterday. Influenza A positive. Procalcitonin quite elevated. Pending CBC lab. 06/30 Patient feeling weak and crummy. No worse but no better. Patient still requiring oxygen but need is decreasing. Patient having diarrhea and she does admit to having diarrhea before she came in also documented diarrhea the day she came in. Patient did not get the flu vaccine. Review of Systems: denies headache/fever/chills/nausea/vomiting/chest or abdominal pain/. Otherwise see above. Constitutional Vitals: Vital Signs Temp Pulse Resp BP Pulse Ox O2 Del Method O2 Flow Rate 97.8 F 82 22 157/82 94 1.5 06/30/22 03:40 06/30/22 03:40 06/30/22 03:40 06/30/22 03:40 06/30/22 03:40 06/30/22 03:40 06/30/22 03:40 Period Temp Pulse Resp BP Sys/Tanner Pulse Ox O2 Del Method O2 Flow Rate Last 24 Hr 97.0 F-99.2 F 72-82 18-24 115-157/60-82 93-95 Nasal Cannula- Oxymask 1.5-5 Intake and Output 06/29/22 06/30/22 06/30/22 19:59 03:59 11:59 Intake Total 300 150 Output Total 100 Balance 300 50 Weight 56.518 kg Intake & Output: Intake & Output 06/29/22 06/30/22 06/30/22 19:59 03:59 11:59 Intake Total 300 150 Output Total 100 Balance 300 50 Weight 56.518 kg Intake: Oral 300 150 Output: Void Amount 100 Other: Stool Size Moderate Small Stool Color Brown Brown Green Stool Consistency Liquid Loose Watery # Voids 1 1 # Bowel Movements 1 1 Exam: General: Alert, Awake, No acute Distress Eyes/N/T: EOMI, Head/Neck: neck supple, CV: Tacky but regular, No murmurs, Pulm: rhonchi b/l, mild decreased BS b/l, no , Abd: soft, nontender, +BS x4 Ext: no clubbing/cyanosis/edema Neuro: Alert, no focal deficits, moves all extremities, Skin: warm/dry OBJ DATA Labs CBC & Chem 7: 06/29/22 05:39 06/29/22 05:39 Labs: Abnormal Lab Results 06/30/22 06/30/22 06/29/22 05:34 05:34 16:35 RBC Hgb Hct Plt Count Lymph % (Auto) [place] % (Auto) Lymph # (Auto) Reactive Lymphocytes Platelet Estimate RBC Morphology Hypochromasia D-Dimer POC pCO2 POC HCO3 POC Total CO2 ABG Lactic Acid Creatinine POC Creatinine POC Glucose Uric Acid Calcium POC WB Ioniz Calcium C-Reactive Protein 15.60 H Total Protein Albumin Globulin Procalcitonin 2.26 H Urine Ketones 20 A Ur Leukocyte Esterase 25 A Urine WBC 7 H Urine Mucus Mod A 06/29/22 06/29/22 06/29/22 08:04 05:39 05:39 RBC 3.39 L Hgb 10.9 L Hct 33.6 L Plt Count 137 L Lymph % (Auto) [place] % (Auto) 14.8 H Lymph # (Auto) 0.94 L Reactive Lymphocytes Platelet Estimate RBC Morphology Hypochromasia D-Dimer POC pCO2 49.6 H POC HCO3 27.6 H POC Total CO2 29.0 H ABG Lactic Acid 0.4 L Creatinine 0.5 L POC Creatinine POC Glucose Uric Acid 2.0 L Calcium 8.4 L POC WB Ioniz Calcium C-Reactive Protein Total Protein 5.1 L Albumin 3.0 L Globulin 2.1 L Procalcitonin Urine Ketones Ur Leukocyte Esterase Urine WBC Urine Mucus 06/29/22 06/28/22 06/28/22 05:00 11:11 10:20 RBC Hgb Hct Plt Count Lymph % (Auto) [place] % (Auto) Lymph # (Auto) Reactive Lymphocytes 3 H Platelet Estimate Decreased A RBC Morphology Abnormal A Hypochromasia 1+ A D-Dimer 0.77 H POC pCO2 POC HCO3 POC Total CO2 ABG Lactic Acid Creatinine POC Creatinine 0.5 L POC Glucose 108 H Uric Acid Calcium POC WB Ioniz Calcium 1.14 L C-Reactive Protein Total Protein Albumin Globulin Procalcitonin Urine Ketones Ur Leukocyte Esterase Urine WBC Urine Mucus 06/28/22 06/28/22 06/28/22 10:15 10:15 10:15 RBC Hgb Hct Plt Count 128 L Lymph % (Auto) 12.1 L [place] % (Auto) Lymph # (Auto) 0.73 L Reactive Lymphocytes Platelet Estimate RBC Morphology Hypochromasia D-Dimer POC pCO2 POC HCO3 POC Total CO2 ABG Lactic Acid Creatinine POC Creatinine POC Glucose Uric Acid Calcium POC WB Ioniz Calcium C-Reactive Protein 28.40 H Total Protein Albumin Globulin Procalcitonin 8.74 H Urine Ketones Ur Leukocyte Esterase Urine WBC Urine Mucus Meds: Medications Acetaminophen (Acetaminophen 325 Mg Tablet) 650 mg PO Q6HP PRN; Protocol PRN Reason: Per Pain Protocol/Fever > 101 Last Admin: 06/29/22 20:42 Dose: 650 mg Albuterol/Ipratropium (Ipratropium/Albuterol 3 Ml Ampul.Neb) 3 ml NEB Q4HP PRN PRN Reason: Shortness Of Breath Aspirin (Aspirin 81 Mg Tab.Chew) 81 mg PO DAILY [facility] Last Admin: 06/29/22 08:58 Dose: 81 mg Atorvastatin Calcium (Atorvastatin 40 Mg Tablet) 80 mg PO HS [facility] Last Admin: 06/29/22 20:41 Dose: 80 mg Ceftriaxone Sodium (Ceftriaxone 1 Gm Vial) 1 gm IV Q24H [facility] Last Admin: 06/29/22 08:58 Dose: 1 gm Enoxaparin Sodium (Enoxaparin 40 Mg/0.4 Ml Syringe) 40 mg SQ DAILY [facility] Last Admin: 06/29/22 08:58 Dose: 40 mg Fluoxetine HCl (Fluoxetine Hcl 20 Mg Capsule) 40 mg PO DAILY [facility] Last Admin: 06/29/22 08:58 Dose: 40 mg Fluoxetine HCl (Fluoxetine Hcl 10 Mg Capsule) 10 mg PO QDAY [facility] Last Admin: 06/29/22 08:59 Dose: 10 mg Gabapentin (Gabapentin 300 Mg Capsule) 300 mg PO HS [facility] Last Admin: 06/29/22 20:41 Dose: 300 mg Azithromycin 500 mg/ Dextrose 250 mls @ 250 mls/hr IV Q24H [facility]; Protocol Stop: 06/30/22 17:59 Last Infusion: 06/29/22 11:09 Dose: Infused Potassium Chloride 40 meq/ (Dextrose) 520 mls @ 130 mls/hr IV UD PRN PRN Reason: Potassium < 3 Magnesium Sulfate (Magnesium Sulfate) 2 gm in 50 mls @ 50 mls/hr IV UD PRN PRN Reason: Magnesium </= 1.6 Ondansetron HCl (Ondansetron 4 Mg/2 Ml Vial) 4 mg IV Q4HP PRN PRN Reason: Nausea And Vomiting Oseltamivir Phosphate (Oseltamivir Phosphate 75 Mg Capsule) 75 mg PO BID [facility] Stop: 07/02/22 21:01 Last Admin: 06/29/22 20:41 Dose: 75 mg Polyethylene Glycol (Polyethylene Glycol 3350 17 Gm Packet) 17 gm PO DAILYP PRN PRN Reason: Constipation Potassium Chloride (Potassium Chloride 20 Meq Tablet) 40 meq PO UD PRN PRN Reason: Potssium is 3-3.5 Potassium Chloride (Potassium Chloride 20 Meq Tablet) 40 meq PO UD PRN PRN Reason: Potassium < 3 Senna (Sennosides 1 Tablet) 2 tab PO DAILYP PRN PRN Reason: Constipation Sodium Chloride (0.9 % Sodium Chloride 10 Ml Syringe) 10 ml IV Q8 [facility] Last Admin: 06/30/22 05:07 Dose: 10 ml Trazodone HCl (Trazodone Hcl 150 Mg Tablet) 150 mg PO [facility] Last Admin: 06/29/22 20:41 Dose: 150 mg A/P Narrative A/P Narrative: A: *Acute hypoxic respiratory failure w/Acute Lung injury borderline ARDS: -down to 1.5L Oxymask *PNA, likely viral + Bacterial coinfection: *Flu A(+): *Sepsis: -febrile o/n *Generalized weakness: *Depression/anxiety: *Diarrhea prior to admit and once episode on day of admission: P: -Tamiflu -pending crp/pct -Rocephing/azithro, pending SC/BC -O2 supp and wean as able -IS/Acapella, prn nebs, RT -stools cx, c.diff -PT/OT -ppx: Lovenox Time Spent With Patient Time: Total time spent is greater than 50% in coordination of care (as documented) at patient's floor/unit and/or counseling patient: Total time spent with greater than 50% in coordination of care (as documented) at patient's floor/unit and/or counseling patient:: 35 - 50 minutes QUALITY VTE Deep Vein Thrombosis/Pulmonary Embolism Present on Admission: No
[2022-06-30] MEDS: ASPIRIN 81 MG TAB.CHEW PO SCH (08:01)
[2022-06-30] MEDS: ENOXAPARIN 40 MG/0.4 ML SYRINGE SQ SCH (08:01)
[2022-06-30] MEDS: FLUoxetine HCL 20 MG CAPSULE PO SCH (08:02)
[2022-06-30] MEDS: FLUoxetine HCL 10 MG CAPSULE PO SCH (08:02)
[2022-06-30] MEDS: OSELTAMIVIR PHOSPHATE 75 MG CAPSULE PO SCH ×2 (08:02→20:47)
[2022-06-30] MEDS: cefTRIAXone 1 GM VIAL IV SCH (08:05)
[2022-06-30] MEDS: AZITHROMYCIN 500 MG in DEXTROSE 5% IN WATER 250 ML IV SCH (09:38)
--- NOTE | 2022-06-30 11:17 | Discharge Summary ---
Discharge Provider Provider IMPORTANT FOLLOW-UP INFORMATION FOR PCP: Patient information: Note initiated : 06/30/22 at 11:15 am Service Date, if different from initiated Date: [] Patient: Savanah Bernstein a 72 y/o F admitted on 06/28/22 for flu sx. Chief Complaint: [] Date of admission: 06/28/22 15:10 Discharge date: 07/01/22 Primary care physician: Reta Barbosa Consults: 06/28/22 Consult to Physician [CONS] Stat Comment: Consulting Provider: Dagoberto Donato Reason For Exam: Physician to Consult COURSE Hospital Course Hospital course: History of present illness: Ms. Bernstein is a 72 year old F Presents to the ED with shortness of breath cough body aches fever chills nausea vomiting diarrhea. Patient states she went to bed feeling fine night but woke up Monday morning feeling crummy including the above symptoms. Shortness of breath worsened to the point where she felt she needed to come into the ED. She is found to be hypoxic at 88%. Her cough is productive of thick green sputum. In the ED she is evaluated found to be tachycardic and hypoxic. She has had the flu vaccine was found to be flu positive. COVID-negative. She says her grandson who she lives with was sick prior to her getting sick. Chest x-ray unremarkable and CTA of the chest was done which showed no PE but moderate patchy groundglass infiltrate right upper and lower lobes smaller in the posterior left. Patient started on oxygen and IV antibiotics in the ED. 06/29 Patient had 1 loose bowel yesterday early evening. Patient has cough shortness of breath that she says her mildly improved. Was on 5 L oxygen mask this morning which is an increase from yesterday. Influenza A positive. Procalcitonin quite elevated. Pending CBC lab. 06/30 Patient feeling weak and crummy. No worse but no better. Patient still requiring oxygen but need is decreasing. Patient having diarrhea and she does admit to having diarrhea before she came in also documented diarrhea the day she came in. Patient did not get the flu vaccine. 07/01 Patient still on 1 L of oxygen. States she is feeling a lot better and wants to go home. Does have a cough and some shortness of breath but feels shortness of breath is near baseline. We will trial her off oxygen and see how she does. She said she was up with physical therapy yesterday but I do not see any PT notes. Yesterday she seemed quite weak and I was worried that she would need halfway facility. Patient maintaining on room air while ambulating and doing well. Desire to go home. Stable for discharge A: *Acute hypoxic respiratory failure w/Acute Lung injury borderline ARDS: *PNA, likely viral + Bacterial coinfection: *Flu A(+): *Sepsis: *Generalized weakness: *Depression/anxiety: *Diarrhea prior to admit and once episode on day of admission: P: -Tamiflu -Abx - Discharge diagnosis: Acute hypoxic respiratory failure pneumonia influenza sepsis Secondary discharge diagnosis: Generalized weakness depression anxiety diarrhea Time Spent with Patient Time attestation: Total time spent providing and/or coordinating discharge services: Time spent: Greater than 30 minutes EXAM Constitutional Vitals: Temp Pulse Resp BP Pulse Ox O2 Del Method O2 Flow Rate 97.7 F 85 16 135/65 90 2.5 06/30/22 07:23 06/30/22 07:23 06/30/22 07:23 06/30/22 08:12 06/30/22 08:16 06/30/22 10:06 06/30/22 10:06 Discharge Data Data Completed and Pending Labs on day of discharge: Labs from last 24 hours 06/30/22 06/30/22 06/29/22 05:34 05:34 16:35 Seg Neutrophils % Band Neutrophils % Lymphocytes % Monocytes % (Manual) Basophils % (Manual) Reactive Lymphocytes Platelet Estimate RBC Morphology Hypochromasia C-Reactive Protein 15.60 H Procalcitonin 2.26 H Urine Color Urine Appearance Urine pH Ur Specific [place] Urine Protein Urine Glucose (UA) Urine Ketones Urine Occult Blood Urine Nitrate Urine Bilirubin Urine Urobilinogen Ur Leukocyte Esterase Urine RBC Urine WBC Ur Squamous Epith Cells Urine Bacteria Hyaline Casts Urine Mucus Ur Culture Indicated? Ur Strep pneumoniae Ag Negative 06/29/22 06/29/22 16:35 05:00 Seg Neutrophils % 65 Band Neutrophils % 10 Lymphocytes % 16 Monocytes % (Manual) 5 Basophils % (Manual) 1 Reactive Lymphocytes 3 H Platelet Estimate Decreased A RBC Morphology Abnormal A Hypochromasia 1+ A C-Reactive Protein Procalcitonin Urine Color Yellow Urine Appearance Clear Urine pH 7.0 Ur Specific [place] 1.015 Urine Protein Negative Urine Glucose (UA) Negative Urine Ketones 20 A Urine Occult Blood Negative Urine Nitrate Negative Urine Bilirubin Negative Urine Urobilinogen Negative Ur Leukocyte Esterase 25 A Urine RBC 3 Urine WBC 7 H Ur Squamous Epith Cells < 1 Urine Bacteria None Hyaline Casts 1 Urine Mucus Mod A Ur Culture Indicated? No Ur Strep pneumoniae Ag Preliminary micro results at discharge 06/29/22 08:03 Blood Culture - Preliminary Blood 06/29/22 08:00 Blood Culture - Preliminary Blood 06/29/22 11:10 Gram Stain - Preliminary Sputum source - Expectorated Discharge Plan Patient/Caregiver Discharge Instructions Activity: increase activity as tolerated Diet: Regular Diet Prescriptions: New oseltamivir 75 mg Capsule 75 mg PO BID Qty: 3 0RF cefdinir 300 mg capsule 300 mg PO BID Qty: 7 0RF Continued atorvastatin 80 mg tablet 80 mg PO QHS aspirin 325 mg tablet 325 mg PO QDAY gabapentin 300 mg capsule 1,200 mg PO HS Qty: 120 2RF trazodone 100 mg tablet See Rx Instructions .ROUTE .COMPLEX Qty: 75 3RF Dose Instruction: TAKE 1& 1/2 TO 2 TABLETS BY MOUTH AT BEDTIME NEEDED FOR INSOMNIA Rx Instructions: TAKE 1& 1/2 TO 2 TABLETS BY MOUTH AT BEDTIME NEEDED FOR INSOMNIA fluoxetine 40 mg capsule 40 mg PO QDAY 30 Days Qty: 30 3RF fluoxetine 10 mg capsule 10 mg PO QDAY Qty: 30 2RF Rx Instructions: Take along with 40mg capsule (total daily dose of 50mg) methocarbamol 750 mg Tablet 750 mg PO PRN MDD TID PRN (Reason: Pain) amlodipine [Norvasc] 5 mg Tablet 5 mg PO QDAY acetaminophen-codeine 300-30 mg Tablet 1 tab PO Q4H PRN (Reason: Pain) Follow Up Plan Follow up with: Reta Barbosa ARNP [Primary Care Provider] - Patient Disposition: Home Health Service Prognosis: Fair Overall status at discharge: patient is progressing back to baseline Discharge Orders: Discharge Order (Routine); Ordered 07/01/22 Ordered By: Dagoberto Donato [facility] VTE Deep Vein Thrombosis/Pulmonary Embolism Present on Admission: No
[2022-06-30] MEDS: ACETAMINOPHEN 325 MG TABLET PO PRN (16:25)
[2022-06-30] MEDS ORDERED: ACETAMINOPHEN W/CODEINE #3 1 TABLET PO PRN (17:04)
[2022-06-30] MEDS ORDERED: METHOCARBAMOL 750 MG TABLET PO PRN (17:05)
[2022-06-30] MEDS ORDERED: amLODIPine 5 MG TABLET PO SCH (17:15)
[2022-06-30] MEDS: GABAPENTIN 300 MG CAPSULE PO SCH (20:48)
[2022-06-30] MEDS: ATORVASTATIN 40 MG TABLET PO SCH (20:48)
[2022-06-30] MEDS: traZODone HCL 150 MG TABLET PO SCH (20:48)
[2022-07-01] MEDS: 0.9 % SODIUM CHLORIDE 10 ML SYRINGE IV SCH ×2 (05:43→13:32)
--- NOTE | 2022-07-01 07:40 | Internal Med Progress Note ---
SUBJECTIVE Subjective Patient information: Note initiated : 07/01/22 at 7:37 am Service Date, if different from initiated Date: [] Patient: Savanah Bernstein a 72 y/o F admitted on 06/28/22 for flu sx. Chief Complaint: [] Interval history: History of present illness: Ms. Bernstein is a 72 year old F Presents to the ED with shortness of breath cough body aches fever chills nausea vomiting diarrhea. Patient states she went to bed feeling fine night but woke up Monday morning feeling crummy including the above symptoms. Shortness of breath w orsened to the point where she felt she needed to come into the ED. She is found to be hypoxic at 88%. Her cough is productive of thick green sputum. In the ED she is evaluated found to be tachycardic and hypoxic. She has had the flu vaccine was found to be flu positive. COVID-negative. She says her grandson who she lives with was sick prior to her getting sick. Chest x-ray unremarkable and CTA of the chest was done which showed no PE but moderate patchy groundglass infiltrate right upper and lower lobes smaller in the posterior left. Patient started on oxygen and IV antibiotics in the ED. 06/29 Patient had 1 loose bowel yesterday early evening. Patient has cough shortness of breath that she says her mildly improved. Was on 5 L oxygen mask this morning which is an increase from yesterday. Influenza A positive. Procalcitonin quite elevated. Pending CBC lab. 06/30 Patient feeling weak and crummy. No worse but no better. Patient still requiring oxygen but need is decreasing. Patient having diarrhea and she does admit to having diarrhea before she came in also documented diarrhea the day she came in. Patient did not get the flu vaccine. 07/01 Patient still on 1 L of oxygen. States she is feeling a lot better and wants to go home. Does have a cough and some shortness of breath but feels shortness of breath is near baseline. We will trial her off oxygen and see how she does. She said she was up with physical therapy yesterday but I do not see any PT notes. Yesterday she seemed quite weak and I was worried that she would need group home facility. Review of Systems: denies headache/fever/chills/nausea/vomiting/chest or abdominal pain/. Otherwise see above. Constitutional Vitals: Vital Signs Temp Pulse Resp BP Pulse Ox O2 Del Method O2 Flow Rate 98.9 F 87 12 164/83 92 1 07/01/22 07:19 07/01/22 07:19 07/01/22 07:19 07/01/22 07:19 07/01/22 07:19 07/01/22 07:19 07/01/22 07:19 Period Temp Pulse Resp BP Sys/Tanner Pulse Ox O2 Del Method O2 Flow Rate Last 24 Hr 97.7 F-98.9 F 62-87 07-07 135-165/65-83 90-98 Nasal Cannula- Room Air 1-2.5 Intake and Output 06/30/22 07/01/22 07/01/22 19:59 03:59 11:59 Intake Total 960 325 Output Total 450 Balance 960 -125 Weight 56.563 kg Intake & Output: Intake & Output 06/30/22 07/01/22 07/01/22 19:59 03:59 11:59 Intake Total 960 325 Output Total 450 Balance 960 -125 Weight 56.563 kg Intake: Oral 960 325 Output: Void Amount 450 Other: Meal Lunch Percent of Meal Consumed 50% Feeding Ability Independent Urine Appearance Clear Urine Color Yellow Stool Size Small Stool Color Brown Stool Consistency Soft # Voids 1 # Bowel Movements 2 Exam: General: Alert, Awake, No acute Distress Eyes/N/T: EOMI, Head/Neck: neck supple, CV: Tacky but regular, No murmurs, Pulm: rhonchi b/l improving, no wheezing Abd: soft, nontender, +BS x4 Ext: no clubbing/cyanosis/edema Neuro: Alert, no focal deficits, moves all extremities, Skin: warm/dry OBJ DATA Labs CBC & Chem 7: 06/29/22 05:39 06/29/22 05:39 Labs: Abnormal Lab Results 06/30/22 06/30/22 06/29/22 05:34 05:34 16:35 RBC Hgb Hct Plt Count Lymph % (Auto) [place] % (Auto) Lymph # (Auto) Reactive Lymphocytes Platelet Estimate RBC Morphology Hypochromasia D-Dimer POC pCO2 POC HCO3 POC Total CO2 ABG Lactic Acid Creatinine POC Creatinine POC Glucose Uric Acid Calcium POC WB Ioniz Calcium C-Reactive Protein 15.60 H Total Protein Albumin Globulin Procalcitonin 2.26 H Urine Ketones 20 A Ur Leukocyte Esterase 25 A Urine WBC 7 H Urine Mucus Mod A 06/29/22 06/29/22 06/29/22 08:04 05:39 05:39 RBC 3.39 L Hgb 10.9 L Hct 33.6 L Plt Count 137 L Lymph % (Auto) [place] % (Auto) 14.8 H Lymph # (Auto) 0.94 L Reactive Lymphocytes Platelet Estimate RBC Morphology Hypochromasia D-Dimer POC pCO2 49.6 H POC HCO3 27.6 H POC Total CO2 29.0 H ABG Lactic Acid 0.4 L Creatinine 0.5 L POC Creatinine POC Glucose Uric Acid 2.0 L Calcium 8.4 L POC WB Ioniz Calcium C-Reactive Protein Total Protein 5.1 L Albumin 3.0 L Globulin 2.1 L Procalcitonin Urine Ketones Ur Leukocyte Esterase Urine WBC Urine Mucus 06/29/22 06/28/22 06/28/22 05:00 11:11 10:20 RBC Hgb Hct Plt Count Lymph % (Auto) [place] % (Auto) Lymph # (Auto) Reactive Lymphocytes 3 H Platelet Estimate Decreased A RBC Morphology Abnormal A Hypochromasia 1+ A D-Dimer 0.77 H POC pCO2 POC HCO3 POC Total CO2 ABG Lactic Acid Creatinine POC Creatinine 0.5 L POC Glucose 108 H Uric Acid Calcium POC WB Ioniz Calcium 1.14 L C-Reactive Protein Total Protein Albumin Globulin Procalcitonin Urine Ketones Ur Leukocyte Esterase Urine WBC Urine Mucus 06/28/22 06/28/22 06/28/22 10:15 10:15 10:15 RBC Hgb Hct Plt Count 128 L Lymph % (Auto) 12.1 L [place] % (Auto) Lymph # (Auto) 0.73 L Reactive Lymphocytes Platelet Estimate RBC Morphology Hypochromasia D-Dimer POC pCO2 POC HCO3 POC Total CO2 ABG Lactic Acid Creatinine POC Creatinine POC Glucose Uric Acid Calcium POC WB Ioniz Calcium C-Reactive Protein 28.40 H Total Protein Albumin Globulin Procalcitonin 8.74 H Urine Ketones Ur Leukocyte Esterase Urine WBC Urine Mucus Meds: Medications Acetaminophen (Acetaminophen 325 Mg Tablet) 650 mg PO Q6HP PRN; Protocol PRN Reason: Per Pain Protocol/Fever > 101 Last Admin: 06/30/22 16:25 Dose: 650 mg Acetaminophen/Codeine Phosphate (Acetaminophen W/Codeine #3 1 Tablet) 1 tab PO Q4HP PRN; Protocol PRN Reason: Per Pain Protocol Last Admin: 06/30/22 17:19 Dose: 1 tab Albuterol/Ipratropium (Ipratropium/Albuterol 3 Ml Ampul.Neb) 3 ml NEB Q4HP PRN PRN Reason: Shortness Of Breath Amlodipine Besylate (Amlodipine 5 Mg Tablet) 5 mg PO DAILY [facility] Aspirin (Aspirin 81 Mg Tab.Chew) 81 mg PO DAILY [facility] Last Admin: 06/30/22 08:01 Dose: 81 mg Atorvastatin Calcium (Atorvastatin 40 Mg Tablet) 80 mg PO HS [facility] Last Admin: 06/30/22 20:48 Dose: 80 mg Ceftriaxone Sodium (Ceftriaxone 1 Gm Vial) 1 gm IV Q24H [facility] Last Admin: 06/30/22 08:05 Dose: 1 gm Enoxaparin Sodium (Enoxaparin 40 Mg/0.4 Ml Syringe) 40 mg SQ DAILY [facility] Last Admin: 06/30/22 08:01 Dose: 40 mg Fluoxetine HCl (Fluoxetine Hcl 20 Mg Capsule) 40 mg PO DAILY [facility] Last Admin: 06/30/22 08:02 Dose: 40 mg Fluoxetine HCl (Fluoxetine Hcl 10 Mg Capsule) 10 mg PO QDAY [facility] Last Admin: 06/30/22 08:02 Dose: 10 mg Gabapentin (Gabapentin 300 Mg Capsule) 300 mg PO HS [facility] Last Admin: 06/30/22 20:48 Dose: 300 mg Potassium Chloride 40 meq/ (Dextrose) 520 mls @ 130 mls/hr IV UD PRN PRN Reason: Potassium < 3 Magnesium Sulfate (Magnesium Sulfate) 2 gm in 50 mls @ 50 mls/hr IV UD PRN PRN Reason: Magnesium </= 1.6 Methocarbamol (Methocarbamol 750 Mg Tablet) 750 mg PO TIDP PRN PRN Reason: Muscle Spasm Ondansetron HCl (Ondansetron 4 Mg/2 Ml Vial) 4 mg IV Q4HP PRN PRN Reason: Nausea And Vomiting Oseltamivir Phosphate (Oseltamivir Phosphate 75 Mg Capsule) 75 mg PO BID [facility] Stop: 07/02/22 21:01 Last Admin: 06/30/22 20:47 Dose: 75 mg Polyethylene Glycol (Polyethylene Glycol 3350 17 Gm Packet) 17 gm PO DAILYP PRN PRN Reason: Constipation Potassium Chloride (Potassium Chloride 20 Meq Tablet) 40 meq PO UD PRN PRN Reason: Potssium is 3-3.5 Potassium Chloride (Potassium Chloride 20 Meq Tablet) 40 meq PO UD PRN PRN Reason: Potassium < 3 Senna (Sennosides 1 Tablet) 2 tab PO DAILYP PRN PRN Reason: Constipation Sodium Chloride (0.9 % Sodium Chloride 10 Ml Syringe) 10 ml IV Q8 [facility] Last Admin: 07/01/22 05:43 Dose: 10 ml Trazodone HCl (Trazodone Hcl 150 Mg Tablet) 150 mg PO HS [facility] Last Admin: 06/30/22 20:48 Dose: 150 mg A/P Narrative A/P Narrative: A: *Acute hypoxic respiratory failure w/Acute Lung injury borderline ARDS: -down to 1L Oxymask, will trial on room air *PNA, likely viral + Bacterial coinfection: -pct elevated but improving *Flu A(+): *Sepsis: -febrile o/n *Generalized weakness: *Depression/anxiety: *Diarrhea prior to admit and once episode on day of admission: P: -Tamiflu -Rocephing/azithro, pending SC/BC -O2 supp and wean as able -IS/Acapella, prn nebs, RT -stools cx, c.diff still pending -PT/OT -ppx: Lovenox Time Spent With Patient Time: Total time spent is greater than 50% in coordination of care (as documented) at patient's floor/unit and/or counseling patient: Total time spent with greater than 50% in coordination of care (as documented) at patient's floor/unit and/or counseling patient:: 25 - 35 minutes QUALITY VTE Deep Vein Thrombosis/Pulmonary Embolism Present on Admission: No
[2022-07-01] MEDS: FLUoxetine HCL 10 MG CAPSULE PO SCH (08:23)
[2022-07-01] MEDS: ASPIRIN 81 MG TAB.CHEW PO SCH (08:24)
[2022-07-01] MEDS: FLUoxetine HCL 20 MG CAPSULE PO SCH (08:24)
[2022-07-01] MEDS: OSELTAMIVIR PHOSPHATE 75 MG CAPSULE PO SCH (08:24)
[2022-07-01] MEDS: ENOXAPARIN 40 MG/0.4 ML SYRINGE SQ SCH (08:25)
[2022-07-01] MEDS: cefTRIAXone 1 GM VIAL IV SCH (08:31)
[2022-07-01] MEDS ORDERED: amLODIPine 5 MG TABLET PO SCH (09:00)
== END 2022-07-01 15:30 | disposition home health service (06) | DRG 871 ==
LOC: ED 09:45 → MEDSUR 15:10
PROVIDERS: ADMIT Internal Medicine; ATTEND Internal Medicine

== ENCOUNTER 2025-06-02 15:53 | Observation (INO) ==
[2025-06-02] MEDS ORDERED: IOPAMIDOL 100 ML BOTTLE IV ONE (15:54)
[2025-06-02] MEDS: 0.9 % SODIUM CHLORIDE 1,000 ML IV ONE (16:28)
[2025-06-02] MEDS: diphenhydrAMINE 50 MG/ML VIAL IV ONE (16:30)
[2025-06-02] MEDS: ACETAMINOPHEN 1,000 MG/100 ML BAG IV ONE (16:31)
[2025-06-02] MEDS: METOCLOPRAMIDE 10 MG/2 ML VIAL IV ONE (16:31)
[2025-06-02 17:53] LABS: Basophils # (Auto) 0.04 K/mcL (0.00-0.30); Basophils % (Auto) 0.6 % (0.0-2.0); Eosinophils # (Auto) 0.10 K/mcL (0.00-0.70); Eosinophils % (Auto) 1.5 % (0.0-7.0); Hematocrit 39.5 % (34.1-44.9); Hemoglobin 12.9 g/dL (11.2-15.7); Lymphocytes # (Auto) 1.50 K/mcL (1.50-4.80); Lymphocytes % (Auto) 22.6 % (15.5-49.0); Mean Corpuscular HGB Conc 32.7 g/dL (31.0-36.0); Monocytes # (Auto) 0.68 K/mcL (0.10-0.90); Monocytes % (Auto) 10.2 % (1.0-12.0); Neutrophils % (Auto) 64.9 % (38.0-78.0); Platelet Count 211 K/mcL (140-440); RBC 4.08 M/mcL (3.59-5.38); WBC 6.7 K/mcL (4.5-11.0)
[2025-06-02 18:07] LABS: ALT/SGPT 34 U/L (<40); AST/SGOT 34 U/L (<32); Albumin 4.0 gm/dL (3.2-5.2); Albumin/Globulin Ratio 2.1 (1.0-2.3); Alkaline Phosphatase 111 U/L (39-117); Anion Gap 10.0 (8.0-16.0); Bilirubin,Total 0.3 mg/dL (0.1-1.0); Blood Urea Nitrogen 11 mg/dL (8-23); Calcium 8.6 mg/dL (8.6-10.4); Carbon Dioxide 26 mmol/L (22-30); Chloride 104 mmol/L (96-108); Globulin 1.9 gm/dL (2.2-3.7); Glucose 91 mg/dL (70-105); INR 1.0 (0.9-1.1); Potassium 4.0 mmol/L (3.3-5.1); Prothrombin Time 14.1 sec (11.9-14.5); Sodium 140 mmol/L (133-145)
[2025-06-02 18:23] LABS: Partial Thromboplastin Time 26.6 sec (20.0-37.0)
[2025-06-02] MEDS: ASPIRIN 81 MG TAB.CHEW CHEWED ONE (18:44)
[2025-06-02] MEDS ORDERED: ONDANSETRON 4 MG/2 ML VIAL IV PRN (21:52)
[2025-06-02] MEDS ORDERED: ACETAMINOPHEN 650 MG/65 ML BAG IV PRN (21:52)
[2025-06-02] MEDS ORDERED: ACETAMINOPHEN 325 MG TABLET PO PRN (21:52)
[2025-06-02] MEDS ORDERED: hydrALAZINE 20 MG/ML VIAL IV PRN (21:52)
[2025-06-02] MEDS ORDERED: IPRATROPIUM/ALBUTEROL 3 ML AMPUL.NEB NEB PRN (21:52)
[2025-06-03 00:07] LABS: HDL Cholesterol 70 mg/dL (>40); LDL Cholesterol,Calculated 58 mg/dL (<100); Triglycerides 42 mg/dL (<150)
[2025-06-03] MEDS: SENNOSIDES 1 TABLET PO SCH (00:19)
[2025-06-03] MEDS: DOCUSATE SODIUM 100 MG CAPSULE PO SCH (00:19)
[2025-06-03] MEDS: 0.9 % SODIUM CHLORIDE 10 ML SYRINGE IV SCH (00:20)
[2025-06-03 15:32] VITALS: TEMP 98.5; O2SAT 99
== END 2025-06-03 16:20 | disposition home or self-care (01) ==
LOC: ED 15:53 → MEDSUR 15:53
PROVIDERS: ADMIT Internal Medicine; ATTEND Internal Medicine